=== PATIENT | male | born 1985 | race American Indian/Alaskan Native ===

== ENCOUNTER 2018-01-31 10:06 | Emergency (ER) | payer SELFPAY ==
[2018-01-31 12:02] LABS: Bacteria,Urine 1+ /HPF (Negative); Bilirubin,Urine NEG (Negative); Blood,Urine SM (Negative); Color,Urine Yellow (Yellow); Mucus,Urine FEW /HPF; Urobilinogen,Urine < 2.0 mg/dL (<2.0)
[2018-01-31 12:03] LABS: WBC,Urine > 182.0 /HPF (0.0-6.0)
--- NOTE | 2018-01-31 13:24 | Emergency Department Report ---
Chief Complaint: Urogenital-Male Stated Complaint: DIFF URINATING Time Seen by Provider: 01/31/18 12:57 - HPI History of Present Illness: This is a 32-year-old male nontoxic, well nourished in appearance, no acute signs of distress presents to the ED with c/o of penile discharge and dysuria 3 days. Patient stated he had a sexual intercourse unprotected last week and then felt these symptoms. They state he is concerned about STD and wants to be treated as he had this prior and these are the same symptoms. Patient denies any back pain, chest pain, or shortness of breathe. Patient denies any testicular pain, testicle swelling, fever, chills, nausea, vomiting, headache or stiff neck. Patient denies any drug allergies or significant past medical history. - Exam Vital Signs: Vital Signs 01/31/18 10:53 Temperature 98.5 F Pulse Rate 77 Respiratory 16 Rate Blood Pressure 109/67 [Right] O2 Sat by Pulse 100 Oximetry Physical Exam: GENERAL: The patient is a well-developed, well-nourished in no apparent distress. Patient is alert and acting appropriately for age. Alert and oriented 3, no apparent distress, normal gait, atraumatic. HEENT: Head is normocephalic and atraumatic. PERRL, Extraocular muscles are intact. Pupils are equal, round, and reactive to light and accommodation. Nares appeared normal. Mouth is well hydrated and without lesions. Mucous membranes are moist. Posterior pharynx clear of any exudate or lesions. Mouth is well hydrated and without lesions. Tonsils not erythematous or swollen. Uvula midline. Tongue elevated. Mucous members are moist. Posterior pharynx clear, no exudate or lesions. Patent airways. ABDOMEN: Soft, nontender, and nondistended. Positive bowel sounds. No hepatosplenomegaly was noted. No guarding or rebound tenderness, negative epigastric bruit. Negative psoas sign, negative cuevas sign, negative McBurneys sign. Negative CVA tenderness. EXTREMITIES: Without any cyanosis, clubbing, rash, lesions or edema. Peripheral pulses intact. Capillary refill less than 2 seconds. Full range of motion bilaterally. MSE screening note: Focused history and physical exam performed. Due to findings the following was ordered: ED Medical Decision Making - Medical Decision Making This is a 32-year-old male that presents with nonmedical emergency and requesting for treatment of STD. A UA has been obtained and there is signs of a UTI with elevated wbc's, leukocytes and RBCs. I will treat patient with Bactrim for this and a gonorrhea and chlamydia pending. Registration has requested for a co-pay but patient refused and left. Prior to patient leaving I gave him the prescription for Bactrim. ED Disposition for MSE Clinical Impression: Possible exposure to STD UTI (urinary tract infection) Qualifiers: Urinary tract infection type: site unspecified Hematuria presence: with hematuria Qualified Code(s): N39.0 - Urinary tract infection, site not specified ; R31.9 - Hematuria, unspecified Disposition: MED SCREENING EXAM-LEFT Is pt being admited?: No Condition: Stable Instructions: Sulfamethoxazole/Trimethoprim (By mouth) Prescriptions: Sulfamethoxazole/Trimethoprim [Bactrim DS TAB] 1 each PO BID #14 tablet
[2018-01-31 13:41] VITALS: BP 110/66
== END 2018-01-31 13:38 | disposition left against medical advice (07) ==
LOC: ED 10:06
DX: N39.0 Urinary tract infection, site not specified (principal)
CPT/HCPCS: 81001; 87591